=== PATIENT | female | born 1975 | race Asian ===

== ENCOUNTER 2018-04-21 11:03 | Outpatient (CLI) | payer OTHER ==
--- NOTE | 2018-05-04 09:48 | MMO ---
BILATERAL MAMMOGRAMS: HISTORY: Screening mammography. COMPARISON: 11/11/2016 FINDINGS: Heterogeneously dense fibroglandular tissue. No dominant mass or suspicious calcifications. The study was evaluated with the assistance of computer aided detection. IMPRESSION: BI-RADS Category 1-Negative. Suggest routine followup. POS: [place]
== END 2018-04-21 11:04 | disposition home or self-care (01) ==
LOC: SCSMAMMO 11:03
PROVIDERS: ATTEND Nurse Practitioner Women's Health
DX: Z12.31 Encounter for screening mammogram for malignant neoplasm of breast (principal)
CPT/HCPCS: 77067